=== PATIENT | male | born 1995 | race Caucasian/White ===

== ENCOUNTER → 2018-08-01 | Outpatient (CLI) | payer BC ==
--- NOTE | 2018-08-01 13:03 | US ---
EXAMINATION TYPE: US groin LT DATE OF EXAM: 08/01/2018 COMPARISON: NONE CLINICAL HISTORY: Left side; R59.0 Localized,enlarged lymph node. Patient states also had yeast infec tion in groin, Lump has decreased in size since he finished antibiotics. 2.6 x 0.1 x 1.3 lymph node corresponding to indicated area of lump. Second lymph node seen superior ly ( 2.1 x 0.7 cm) IMPRESSION: 1. Left inguinal adenopathy at the level of palpable abnormality.
== END | disposition home or self-care (01) ==
LOC: RADUSWWP 12:35
PROVIDERS: ATTEND Family Medicine
DX: R59.0 Localized enlarged lymph nodes (principal)